=== PATIENT | female | born 1955 | race Caucasian/White ===

== ENCOUNTER 2020-06-01 13:59 | Emergency (ER) | payer MEDICARE, OTHER ==
[~2020-06-01] VITALS: Ht 177.8 cm; Wt 72.4 kg
[~2020-06-01 13:59] MED LIST: APIX5TAB PO; FLEC100T PO; LEVO125T PO; METO50TA82 PO
--- NOTE | 2020-06-01 14:49 | NUR ---
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
--- NOTE | 2020-06-01 15:00 | NUR ---
PT ABLE TO AMBULATE TO BATHROOM STEADILY. PT PROVIDED URINE SAMPLE SINCE GOING TO BATHROOM ANYWAY.
--- NOTE | 2020-06-01 15:05 | NUR ---
PT TO CT
[2020-06-01 15:23] LABS: BASOPHILS # (AUTO) 0.09 x10^3/uL (0-0.1); BASOPHILS % (AUTO) 1 % (0-1); EOSINOPHILS # (AUTO) 0.31 x10^3/uL (0-0.4); EOSINOPHILS % (AUTO) 5 % (1-7); LYMPHOCYTES # (AUTO) 1.66 x10^3/uL (1-3.4); LYMPHOCYTES % (AUTO) 26 % (22-44); MD NO; MEAN CORPUSCULAR HEMOGLOBIN 31.5 pg (27.0-34.8); MEAN CORPUSCULAR HGB CONC 33.6 g/dL (32.4-35.8); MEAN CORPUSCULAR VOLUME 93.9 fL (80-100); MEAN PLATELET VOLUME 8.9 fL (7.4-10.4); MONOCYTES # (AUTO) 0.36 x10^3/uL (0.2-0.8); MONOCYTES % (AUTO) 6 % (2-9); NEUTROPHILS # (AUTO) 3.96 x10^3/uL (1.8-6.8); NEUTROPHILS % (AUTO) 62 % (42-75); PLATELET COUNT 227 x10^3/uL (130-400); RED BLOOD COUNT 4.26 x10^6/uL (3.82-5.3); RED CELL DISTRIBUTION WIDTH 13.6 % (9.6-15.2)
[2020-06-01 15:36] LABS: ALBUMIN 3.8 g/dL (3.4-5.0); ANION GAP 6 mmol/L (5-15); CALCIUM 8.8 mg/dL (8.5-10.1); CHLORIDE 111 mmol/L (98-107); CREATININE 0.85 mg/dL (0.55-1.02)
--- NOTE | 2020-06-01 16:41 | NUR ---
PT AMBULATORY TO BATHROOM STEADILY AT THIS TIME.
--- NOTE | 2020-06-01 16:43 | NUR ---
PT UP FOR RECHECK. ALL RESULTS BACK.
[2020-06-01 17:13] VITALS: BP 119/69
== END 2020-06-01 17:15 ==
LOC: ED 17:11
DX: G44.219 Episodic tension-type headache, not intractable (principal); E03.9 Hypothyroidism, unspecified; R00.1 Bradycardia, unspecified; I48.91 Unspecified atrial fibrillation
CPT/HCPCS: 36415; 70450; 80048; 82040; 85025; 93005; 99285